=== PATIENT | male | born 1990 ===

== ENCOUNTER 2018-03-23 08:10 | Emergency (ER) | payer OTHER ==
[2018-03-23] MEDS ORDERED: Lidocaine 2% w Epi 1:100,000 Inj IJ STA (08:39)
--- NOTE | 2018-03-23 09:39 | RAD ---
Right wrist four views History: Injury. Comparison: None available. Findings: Question of a horizontally oriented linear lucency through the mid waist of the scaphoid bone; most prominently noted on the scaphoid view, concerning for possible nondisplaced fracture of the scaphoid. Alternatively, this may represent a prominent vascular groove. Correlation with MRI may be helpful if clinically indicated. Impression: Question of a horizontally oriented linear lucency through the mid waist of the scaphoid bone; most prominently noted on the scaphoid view, concerning for possible nondisplaced fracture of the scaphoid. Alternatively, this may represent a prominent vascular groove. Correlation with MRI may be helpful if clinically indicated.
--- NOTE | 2018-03-23 09:47 | CT ---
PROCEDURE: CT HEAD WITHOUT CONTRAST. HISTORY: Trauma. Head injury. COMPARISON: None available. TECHNIQUE: Axial computed tomography images were obtained through the head/brain without intravenous contrast. Radiation dose: Total exam DLP = 1076 mGy-cm. This CT exam was performed using one or more of the following dose reduction techniques: Automated exposure control, adjustment of the mA and/or kV according to patient size, and/or use of iterative reconstruction technique. FINDINGS: HEMORRHAGE: No intracranial hemorrhage. BRAIN: No mass effect or edema. No atrophy or chronic microvascular ischemic changes. VENTRICLES: Unremarkable. No hydrocephalus. CALVARIUM: Unremarkable. PARANASAL SINUSES: Unremarkable as visualized. No significant inflammatory changes. MASTOID AIR CELLS: Unremarkable as visualized. No inflammatory changes. OTHER FINDINGS: Soft tissue swelling noted overlying the inferior left frontal cranium. Streak artifact limits evaluation of the posterior fossa. IMPRESSION: No acute intracranial abnormality. If focal neurologic deficit persists, consider MRI.
--- NOTE | 2018-03-23 09:52 | CT ---
CT facial History: Injury. Comparison: None available. Technique: Multiple contiguous axial images were performed through the face without the use of intravenous contrast. Subsequently, sagittal and coronal reformatted images were obtained. This CT exam was performed using one or more of the following dose reduction techniques: Automated exposure control, adjustment of the mA and/or kV according to patient size, and/or use of iterative reconstruction technique. Findings: Minimal mucosal thickening of the bilateral maxillary sinuses and ethmoid air cells. Mastoid air cells are preserved. Mild soft tissue swelling overlying the inferior left frontal cranium. Visualized orbital globes appear preserved. No evidence of acute displaced fracture or dislocation. Impression: Negative acute.
--- NOTE | 2018-03-23 10:05 | CT ---
CT right wrist History: Pain. Evaluate for fracture. Comparison: None available. Technique: Multi-echo multiplanar sequences were performed through the right wrist without the use of intravenous contrast. Findings: Horizontally oriented linear lucency through the mid waist of the scaphoid concerning for a scaphoid fracture. Additional curvilinear vertically oriented lucency extending into the distal pole of the scaphoid concerning for a small additional fracture deformity. This may be better evaluated with MRI if clinically indicated. Though less likely, prominent vascular grooves cannot entirely be excluded. Again correlation with MRI may be helpful if clinically indicated. Subchondral cyst formation noted within the lunate. Impression: Horizontally oriented linear lucency through the mid waist of the scaphoid concerning for a scaphoid fracture. Additional curvilinear vertically oriented lucency extending into the distal pole of the scaphoid concerning for a small additional fracture deformity. This may be better evaluated with MRI if clinically indicated. Though less likely, prominent vascular grooves cannot entirely be excluded. Again correlation with MRI may be helpful if clinically indicated.
[2018-03-23] MEDS ORDERED: Tdap Vaccine 0.5 ml Vial (10-64 yrs) IM ONE ×2 (10:20→10:31)
[2018-03-23] MEDS ORDERED: oxyCODONE 5 mg Immediate Release Tab PO STA (10:55)
[2018-03-23] MEDS ORDERED: oxyCODONE 5 mg Immediate Release Tab ONE (11:05)
--- NOTE | 2018-03-23 12:25 | RAD ---
Left ankle three views History: Pain and swelling. Comparison: None available. Findings: Lateral malleolar soft tissue swelling. Question mild widening of the medial ankle mortise on the frontal view. No evidence of acute displaced fracture. Impression: Lateral malleolar soft tissue swelling. Question mild widening of the medial ankle mortise on the frontal view. No evidence of acute displaced fracture. If pain persists, consider MRI.
--- NOTE | 2018-03-23 12:29 | RAD ---
Left foot three views History: Injury. Comparison: None available. Findings: No evidence of acute displaced fracture or dislocation. On the oblique view, there is some minimal subluxation of the 2nd distal phalanx in relationship to the middle phalanx which does not persist on the frontal view. Mild hallux valgus deformity. Impression: Mild hallux valgus deformity. If pain persists, consider MRI.
[2018-03-23 13:16] VITALS: BP 124/74; PULSE 90; RESP 18; TEMP 98.1; O2SAT 100
--- NOTE | 2018-03-23 13:48 | C.PDOC ---
History Of Present Illness 27 year old male presents to ED for evaluation of laceration to chin, right wrist and left foot pain. Pt is unsure of how the injury occurred, but admits to drinking alcohol. Pt is unsure of tetanus vaccination status. Denies fever, or any other complaints at this time. Chief Complaint (Nursing): Abnormal Skin Integrity History Per: Patient History/Exam Limitations: no limitations Onset/Duration Of Symptoms: Days Current Symptoms Are (Timing): Still Present Location Of Injury: Right: Wrist, Left: Foot Quality Of Symptoms: Painful Recent travel outside of the [place]: No Additional History Per: Patient Past Medical History Reviewed: Historical Data, Nursing Documentation, Vital Signs Vital Signs: Last Vital Signs Temp 98.1 F 03/23/18 13:00 Pulse 90 03/23/18 13:00 Resp 18 03/23/18 13:00 BP 124/74 03/23/18 13:00 Pulse Ox 100 03/23/18 14:11 Family History: States: Unknown Family Hx - Social History Hx Alcohol Use: Yes Hx Substance Use: Yes (marijuana) - Immunization History Hx Tetanus Toxoid Vaccination: No Hx Influenza Vaccination: No Hx Pneumococcal Vaccination: No Review Of Systems Except As Marked, All Systems Reviewed And Found Negative. Constitutional: Negative for: Fever, Chills Cardiovascular: Negative for: Chest Pain, Palpitations Respiratory: Negative for: Cough, Shortness of Breath Musculoskeletal: Positive for: Hand Pain (right wrist), Foot Pain (left) Skin: Positive for: Other (laceration to chin) Physical Exam - Physical Exam Appears: Non-toxic, No Acute Distress Skin: Warm, Dry, Other (2cm of V-shaped laceration to chin, no active bleeding) Head: Atraumatic, Normacephalic Eye(s): bilateral: Normal Inspection Oral Mucosa: Moist, Other (EtOH on breath) Cardiovascular: Rhythm Regular Respiratory: Normal Breath Sounds, No Rales, No Rhonchi, No Wheezing Extremity: Normal ROM, Tenderness (diffuse right wrist and left foot), Capillary Refill (less than 2 seconds), No Deformity, No Swelling Pulses: Right Radial: Normal, Left Dorsalis Pedis: Normal Neurological/Psych: Oriented x3, Normal Speech ED Course And Treatment O2 Sat by Pulse Oximetry: 100 (RA) Pulse Ox Interpretation: Normal Laceration - Laceration Repair chin Wound Length (In cm): 2cm Description Of Wound: Linear Wound Cleansed With: Sterile Saline Anesthesia: Lidocaine 2%, With Epi Wound Examination: Irrigated With Saline, No FB With Wound Exploration Wound Closure: Suture (5) Suture Technique And Material Used: Interrupted, Nylon (4'0) Medical Decision Making Medical Decision Making: Chin laceration was repaired. Pt tolerated procedure well, no immediate complications. X-ray and CT or right wrist shows non-displaced scaphoid fracture. Pt will be placed on thumb spica splint. Pt is being discharged home and is given instructions to follow up with orthopedist tomorrow morning. Disposition - Disposition Referrals: Sid Ortiz MD [Staff Provider] - Disposition: HOME/ ROUTINE Disposition Time: 10:05 Condition: IMPROVED Additional Instructions: Thank you for letting us take care of you today. The emergency medical care you received today was directed at your acute symptoms. If you were prescribed any medication, please fill it and take as directed. It may take several days for your symptoms to resolve. Return to the Emergency Department if your symptoms worsen, do not improve, or if you have any other problems. Please contact your doctor or call one of the physicians/clinics you have been referred to that are listed on the Patient Visit Information form that is included in your discharge packet. Bring any paperwork you were given at discharge with you along with any medications you are taking to your follow up visit. Our treatment cannot replace ongoing medical care by a primary care provider (PCP) outside of the emergency department. Thank you for allowing the [facility] team to be part of your care today. Follow up with Dr. Ortiz, orthopedics, tomorrow morning for evaluation of your wrist fracture. Follow up with your primary care doctor or the emergency room in 5-7 days for suture removal. Marisol por dejarnos atenderlo hoy. La atencin mdica de emergencia que recibi hoy estaba dirigida a vero sntomas agudos. Si le prescribieron algn medicamento, llnelo y tome segn las indicaciones. Vero sntomas pueden tardar varios bejarano en resolverse. Regrese al Departamento de Emergencia si vero s ntomas empeoran, no mejoran o si tiene algn otro problema. Comunquese con argueta mdico o llame a segun de los mdicos / clnicas a los que cai sido referido que figura en el formulario de Informacin de visita del paciente que se incluye en argueta paquete de paola. Traiga todos los documentos que recibi al momento del paola junto con los medicamentos que est tomando en argueta visita de seguimiento. Nuestro tratamiento no puede reemplazar la atencin mdica en curso por parte de un proveedor de atencin primaria (PCP) fuera del departamento de emergencias. Marisol por permitir que el equipo de [facility] sea parte de argueta cuidado hoy. Reny un seguimiento con el Dr[facility] Ortiz, [facility], maana por la maana para la evaluacin de argueta fractura de mueca. Reny un seguimiento con argueta mdico de atencin primaria o la baltazar de emergencias en 5-7 bejarano para la extraccin de la sutura. Instructions: Cast Care, Laceration Repair With Stitches (DC), Wrist Fracture ( DC) Forms: Gen Discharge Inst Gabonese, CISSOID (Gabonese), Work Excuse Print Language: CONGOLESE - Clinical Impression Clinical Impression: Chin laceration, Scaphoid fracture, ETOH abuse - Scribe Statement The provider has reviewed the documentation as recorded by the Scribryan Simpson All medical record entries made by the Scribe were at my direction and personally dictated by me. I have reviewed the chart and agree that the record accurately reflects my personal performance of the history, physical exam, medical decision making, and the department course for this patient. I have also personally directed, reviewed, and agree with the discharge instructions and disposition.
== END 2018-03-23 13:15 | disposition home or self-care (01) ==
LOC: C.ER 08:10
DX: S01.81XA Laceration without foreign body of other part of head, initial encounter (principal); S62.001A Unspecified fracture of navicular [scaphoid] bone of right wrist, initial encounter for closed fracture; X58.XXXA Exposure to other specified factors, initial encounter; F10.10 Alcohol abuse, uncomplicated